=== PATIENT | female | born 1990 | race Asian ===

== ENCOUNTER 2016-11-09 11:07 | Outpatient (CLI) | payer MEDICAID | END 2016-11-09 11:08 | disposition home or self-care (01) | DX: N83.201 Unspecified ovarian cyst, right side (principal) ==

== ENCOUNTER 2017-09-04 19:38 | Emergency (ER) | payer MEDICAID ==
[2017-09-04 20:17] LABS: RAPID STREP SCREEN REAGENT QC YELLOW (YELLOW)
[2017-09-04] MEDS ORDERED: DEXAMETHASONE 10 MG/ML VIAL PO STA (20:45)
[2017-09-04] MEDS ORDERED: KETOROLAC 60 MG/2 ML VIAL IM STA (20:45)
[2017-09-04] MEDS ORDERED: AMOXICILLIN 250 MG CAPSULE PO STA (20:45)
--- NOTE | 2017-09-04 20:49 | ED Physician Documentation ---
PD HPI HEENT - Stated complaint Stated Complaint: SORE THROAT - Chief complaint Chief Complaint: Heent - History obtained from History obtained from: Patient - History of Present Illness Timing - onset: Today Timing - details: Gradual onset, Still present Location: Right ear, Left ear, Throat Worsens: Swalllowing Associated symptoms: No: Fever Similar symptoms before: Has not had sx before Recently seen: Not recently seen - Additional information Additional information: Patient is a 27 year old female with no significant past medical history who is presenting to the emergency department for throat and ear pain. patient states that it started today and has become progressively worse throughout the day. Patient states that patient's son has a cough at home. Review of Systems Constitutional: reports: Fever. denies: Chills, Myalgias Eyes: reports: Discharge, Irritation Ears: reports: Ear pain Nose: reports: Congestion, Sinus pressure / pain Throat: reports: Sore throat. denies: Swollen tonsils Cardiac: reports: Reviewed and negative Respiratory: denies: Cough GI: denies: Nausea, Vomiting PD PAST MEDICAL HISTORY - Past Medical History Past Medical History: No Cardiovascular: None Respiratory: None Neuro: None Endocrine/Autoimmune: None GI: None HOIST OPERATOR: None : None HEENT: None Psych: Other Musculoskeletal: None Derm: None - Past Surgical History Past Surgical History: Yes General: Cholecystectomy /HOIST OPERATOR: section HEENT: Tonsil/Adenoidectomy - Present Medications Home Medications: Ambulatory Orders Medication Instructions Recorded Confirmed Amoxicillin 1,000 mg PO Q8HR 7 Days capsule 09/04/17 - Allergies Allergies/Adverse Reactions: Allergies Allergy/AdvReac Type Severity Reaction Status Date / Time No Known Drug Allergies Allergy Verified 09/04/17 19:50 - Social History Does the pt smoke?: No Smoking Status: Never smoker Does the pt drink ETOH?: Yes Does the pt have substance abuse?: No - Immunizations Immunizations are current?: Yes - POLST Patient has POLST: No PD ED PE NORMAL - Vitals Vital signs reviewed: Yes - General General: Alert and oriented X 3, Well developed/nourished - HEENT HEENT: Atraumatic, PERRL - Neck Neck: Supple, no meningeal sign, No adenopathy, No JVD - Cardiac Cardiac: RRR, No murmur, No rub - Respiratory Respiratory: No respiratory distress, Clear bilaterally - Abdomen Abdomen: Soft, Non tender, Non distended - Derm Derm: Normal color, Warm and dry, No rash - Extremities Extremities: No deformity, No edema - Neuro Neuro: Alert and oriented X 3, No motor deficit, No sensory deficit, Normal speech - Psych Psych: Normal mood PD ED PE EXPANDED - HEENT HEENT: R TM retracted, R TM loss of landmarks, L TM retracted, L TM loss of landmarks, Nasal congestion, Dry mucous membranes, Pharyngeal erythema. No: Tonsillar exudate, Soft palate petecchiae Results - Vitals Vitals: Vital Signs - 24 hr 09/04/17 09/04/17 19:47 21:13 Temperature 36.6 C 37.3 C Heart Rate 92 66 Respiratory 18 18 Rate Blood Pressure 126/81 H 113/77 O2 Saturation 99 98 Oxygen O2 Source Room air - Labs Labs: Laboratory Tests 09/04/17 20:01 Group A Strep Rapid Negative PD MEDICAL DECISION MAKING - ED course Complexity details: reviewed old records, reviewed results, re-evaluated patient , considered differential, d/w patient ED course: Patient was seen and examined at bedside. Rapid strep was performed and negative. Patient's findings were consistent with otitis media. patient was treated with toradol, decadron and amoxicillin. Patient required no further work up at this time and was stable for discharge with outpatient follow up. Departure - Departure Disposition: 01 Home, Self Care Clinical Impression: Otitis media Condition: Good Instructions: ED Otitis Media Acute Adult Follow-Up: primary,care provider [Other] - Within 3 Days Prescriptions: Amoxicillin 1,000 mg PO Q8HR 7 Days capsule Comments: Your symptoms today are being caused by otitis media or an ear infection. You had your first dose of antibiotics tonight and will need to be on them for the next week. You should make sure you get plenty of rest and drink plenty of fluids. You can take motrin or tylenol as needed for fevers or pains. You should follow up with your doctor if your symptoms don't improve in the next couple of days. You may return to the emergency department at any time for new , worsening or uncontrollable symptoms. Discharge Date/Time: 09/04/17 21:13
[2017-09-04] MEDS ORDERED: AMOXICILLIN 250 MG CAPSULE PO ONE (20:56)
[2017-09-04] MEDS ORDERED: KETOROLAC 60 MG/2 ML VIAL ONE (20:56)
[2017-09-04] MEDS ORDERED: DEXAMETHASONE 10 MG/ML VIAL ONE (20:56)
[2017-09-04 21:14] VITALS: BP 113/77
== END 2017-09-04 21:13 | disposition home or self-care (01) ==
LOC: ED 19:38
DX: H66.93 Otitis media, unspecified, bilateral (principal)
CPT/HCPCS: 87070; 87430; 96372; 99283; A9270

== ENCOUNTER 2017-11-07 15:19 | Outpatient (CLI) | payer SELFPAY | END 2017-11-07 15:20 | disposition home or self-care (01) | LOC: LAB.R 15:19 | PROVIDERS: ATTEND Registered Nurse | DX: N76.0 Acute vaginitis (principal) | CPT/HCPCS: 87491; 87591 ==

== ENCOUNTER 2018-02-14 12:57 | Outpatient (CLI) | payer OTHER ==
--- NOTE | 2018-02-14 16:14 | Ultrasound Report ---
EXAM: PELVIC ULTRASOUND EXAM DATE: 02/14/2018 01:58 PM. CLINICAL HISTORY: RIGHT LOWER QUADRANT ABDOMINAL TENDERNESS. LMP 01/20/2018. COMPARISON: Pelvic ultrasound 11/09/2016. TECHNIQUE: Realtime transabdominal pelvic scan performed to identify the uterus and adnexa and as an overview of other pelvic structures, followed by transvaginal scan to provide greater detail of the u terus and adnexa, with static image documentation. FINDINGS: Uterus: 8.2 x 3.4 x 4.4 cm, volume 64 cc. Anteverted position. Normal overall size and echotexture. Masses: None. Endometrium: 2.9 mm. Normal. Cervix: Unremarkable. Right Ovary: 2.9 x 1.0 x 1.4 cm, volume 2.1 cc. Normal echotexture and blood flow. Left Ovary: 2.3 x 1.0 x 1.4 cm, volume 1.6 cc. Normal echotexture and blood flow. Located high, seen only transabdominally. Free Fluid: None. Other: None. IMPRESSION: Normal pelvic ultrasound. [facility] Referring Provider Line: [phone] SITE ID: [id number]
== END 2018-02-14 12:58 | disposition home or self-care (01) ==
LOC: DI 12:57
PROVIDERS: ATTEND Nurse Practitioner
DX: R10.813 Right lower quadrant abdominal tenderness (principal)
CPT/HCPCS: 76830; 76856

== ENCOUNTER 2018-09-21 10:14 | Emergency (ER) | payer OTHER ==
[2018-09-21 11:01] LABS: BASOPHILS % (AUTO) 0.3 %; EOSINOPHILS # (AUTO) 0.1 10^3/uL (0.0-0.7); EOSINOPHILS % (AUTO) 1.1 %; HGB - HEMOGLOBIN 13.3 g/dL (12.0-16.0); LYMPHOCYTES # (AUTO) 1.7 10^3/uL (1.5-3.5); LYMPHOCYTES % (AUTO) 16.4 %; MEAN CORPUSCULAR HEMOGLOBIN 32.7 pg (27.0-31.0); MEAN CORPUSCULAR HGB CONC 36.3 g/dL (32.0-36.0); MEAN CORPUSCULAR VOLUME 90.1 fL (81.0-99.0); MONOCYTES # (AUTO) 0.7 10^3/uL (0.0-1.0); NEUTROPHILS % (AUTO) 75.2 %; PLT - PLATELET COUNT 252 10^3/uL (130-450); RED BLOOD COUNT 4.06 10^6/uL (4.20-5.40); RED CELL DISTRIBUTION WIDTH 14.1 % (12.0-15.0); WHITE BLOOD COUNT 10.6 x10^3/uL (4.8-10.8)
[2018-09-21 11:15] LABS: ALBUMIN 3.9 g/dL (3.2-5.5); ALBUMIN/GLOBULIN RATIO 1.3 (1.0-2.2); CALCIUM 8.3 mg/dL (8.5-10.3); CREATININE 0.7 mg/dL (0.4-1.0)
--- NOTE | 2018-09-21 12:07 | ED Physician Documentation ---
PD HPI ABD PAIN - Stated complaint Stated Complaint: LOW RT ABD PX - Chief complaint Chief Complaint: Abd Pain - History obtained from History obtained from: Patient - History of Present Illness Timing - onset: Yesterday Timing - duration: Days (10/07) Timing - details: Gradual onset, Waxing and waning Quality: Cramping, Aching, Pain Location: Periumbilical, RLQ Radiation: Right flank Improved by: No: Eating, Laying still Worsened by: Moving. No: Eating Associated symptoms: Nausea, Loss of appetite. No: Fever, Vomiting, Diarrhea, Constipation, Melena, Hematochezia, Dysuria, Vaginal dc Similar symptoms before: Has not had sx before Recently seen: Not recently seen Review of Systems Constitutional: denies: Fever, Chills, Myalgias Nose: denies: Rhinorrhea / runny nose, Congestion Throat: denies: Sore throat Respiratory: denies: Cough GI: reports: Abdominal Pain, Nausea. denies: Abdominal Swelling, Vomiting, Constipation, Diarrhea : denies: Dysuria, Frequency, Discharge Skin: denies: Rash, Lesions PD PAST MEDICAL HISTORY - Past Medical History Cardiovascular: None Respiratory: None Endocrine/Autoimmune: None GI: None PRIMARY THERAPIST: None : None HEENT: None Psych: Other Musculoskeletal: None Derm: None - Past Surgical History Past Surgical History: Yes General: Cholecystectomy /PRIMARY THERAPIST: section HEENT: Tonsil/Adenoidectomy - Present Medications Home Medications: Ambulatory Orders Medication Instructions Recorded Confirmed Hydrocodone/Acetaminophen [[place] 1 each PO Q6H PRN #12 tablet 09/21/18 5-325 Tablet] Naproxen 375 mg PO BID #20 tablet 09/21/18 Ondansetron Odt [Zofran] 4 mg TL Q6H PRN #10 tablet 09/21/18 Venlafaxine [Effexor] 37.5 mg PO BID 09/21/18 09/21/18 - Allergies Allergies/Adverse Reactions: Allergies Allergy/AdvReac Type Severity Reaction Status Date / Time No Known Drug Allergies Allergy Verified 09/04/17 19:50 - Social History Does the pt smoke?: No Smoking Status: Never smoker Does the pt drink ETOH?: Yes Does the pt have substance abuse?: No - Immunizations Immunizations are current?: Yes - POLST Patient has POLST: No PD ED PE NORMAL - Vitals Vital signs reviewed: Yes - General General: Alert and oriented X 3, No acute distress, Well developed/nourished - HEENT HEENT: Moist mucous membranes, Pharynx benign - Neck Neck: Supple, no meningeal sign, No adenopathy - Cardiac Cardiac: RRR, No murmur - Respiratory Respiratory: Clear bilaterally - Abdomen Abdomen: Normal bowel sounds, Soft, Non distended, No organomegaly, Other (tender RLQ and periumbilical with local guarding. No percussion tenderness. ) - Female Female : Deferred - Rectal Rectal: Deferred - Back Back: No CVA TTP - Derm Derm: Normal color, Warm and dry - Neuro Neuro: Alert and oriented X 3, No motor deficit, Normal speech Results - Vitals Vitals: Vital Signs - 24 hr 09/21/18 09/21/18 09/21/18 10:30 14:10 15:21 Temperature 36.6 C Heart Rate 85 65 74 Respiratory 12 16 14 Rate Blood Pressure 125/75 115/75 116/86 H O2 Saturation 100 100 99 Oxygen O2 Source Room air - Labs Labs: Microbiology 09/21/18 11:00 Urine Culture - Final Urine,Clean Catch LESS THAN 10,000 COLONIES/ML polymicrobial growth including potential pathogens. This is suggestive of skin or other contamination. Laboratory Tests 09/21/18 09/21/18 09/21/18 10:57 10:57 11:00 WBC 10.6 RBC 4.06 L Hgb 13.3 Hct 36.6 L MCV 90.1 MCH 32.7 H MCHC 36.3 H RDW 14.1 Plt Count 252 MPV 8.0 Neut # (Auto) 8.0 H Lymph # (Auto) 1.7 King[place]isher # (Auto) 0.7 Eos # (Auto) 0.1 Baso # (Auto) 0.0 Absolute Nucleated RBC 0.00 Nucleated RBC % 0.0 Sodium 135 Potassium 3.6 Chloride 105 Carbon Dioxide 23 Anion Gap 7.0 BUN 14 Creatinine 0.7 Estimated GFR (MDRD) 98 Glucose 101 H Calcium 8.3 L Total Bilirubin 1.0 AST 36 ALT 36 Alkaline Phosphatase 61 Total Protein 7.0 Albumin 3.9 Globulin 3.1 Albumin/Globulin Ratio 1.3 Lipase 27 Urine Color YELLOW Urine Clarity HAZY Urine pH 6.0 Ur Specific Min[place] 1.020 Urine Protein NEGATIVE Urine Glucose (UA) NEGATIVE Urine Ketones NEGATIVE Urine Occult Blood NEGATIVE Urine Nitrite NEGATIVE Urine Bilirubin NEGATIVE Urine Urobilinogen 0.2 (NORMAL) Ur Leukocyte Esterase TRACE H Urine RBC 0-5 Urine WBC 0-3 Ur Squamous Epith Cells RARE Squamous Urine Bacteria Rare Ur Microscopic Review INDICATED Urine Culture Comments INDICATED Urine HCG, Qual 09/21/18 11:00 WBC RBC Hgb Hct MCV MCH MCHC RDW Plt Count MPV Neut # (Auto) Lymph # (Auto) King[place]isher # (Auto) Eos # (Auto) Baso # (Auto) Absolute Nucleated RBC Nucleated RBC % Sodium Potassium Chloride Carbon Dioxide Anion Gap BUN Creatinine Estimated GFR (MDRD) Glucose Calcium Total Bilirubin AST ALT Alkaline Phosphatase Total Protein Albumin Globulin Albumin/Globulin Ratio Lipase Urine Color Urine Clarity Urine pH Ur Specific Minetto 1.020 Urine Protein Urine Glucose (UA) Urine Ketones Urine Occult Blood Urine Nitrite Urine Bilirubin Urine Urobilinogen Ur Leukocyte Esterase Urine RBC Urine WBC Ur Squamous Epith Cells Urine Bacteria Ur Microscopic Review Urine Culture Comments Urine HCG, Qual NEGATIVE - Rads (name of study) abd/pelvic CT Radiology: Prelim report reviewed (some inflammation of colon. Appendix is normal. ), See rad report PD MEDICAL DECISION MAKING - ED course Complexity details: re-evaluated patient (improved with meds), considered differential (cocnern for TOA, ovarian cysts, appendicitis, UTI, stones), d/w patient Departure - Departure Disposition: 01 Home, Self Care Clinical Impression: Abdominal pain Qualifiers: Abdominal location: right lower quadrant Qualified Code(s): R10.31 - Right lower quadrant pain Condition: Stable Record reviewed to determine appropriate education?: Yes Instructions: ED Abdominal Pain Unkn Cause Follow-Up: Maru Tavera ARNP [Primary Care Provider] - Prescriptions: Hydrocodone/Acetaminophen [[place] 5-325 Tablet] 1 each PO Q6H PRN #12 tablet PRN Reason: Pain Naproxen 375 mg PO BID #20 tablet Ondansetron Odt [Zofran] 4 mg TL Q6H PRN #10 tablet PRN Reason: Nausea / Vomiting Comments: Your urine test, blood tests, CT scan did not show any obvious abnormality. There is obviously something still hurting but no problem such as appendicitis or kidney stone or urinary infection or cyst. At this point drink lots of fluids. Use some naproxen or ibuprofen 2-3 times a day. Add Tylenol or pain medicine if needed. Recheck if not improved over the next 1 or 2 days. He could be potentially having ovarian pain such as from midcycle or some residual intestinal pain from your diarrhea last week. This should improve with some anti-inflammatories. Discharge Date/Time: 09/21/18 15:23
[2018-09-21 12:18] LABS: BILIRUBIN,URINE NEGATIVE (NEGATIVE); GLUCOSE, URINE (UA) NEGATIVE (NEGATIVE); KETONES,URINE (UA) NEGATIVE (NEGATIVE); LEUKOCYTE ESTERASE, URINE TRACE (NEGATIVE); NITRITE,URINE NEGATIVE (NEGATIVE); OCCULT BLOOD,URINE NEGATIVE (NEGATIVE); PROTEIN,URINE NEGATIVE (NEGATIVE); UROBILINOGEN,URINE 0.2 (NORMAL) E.U./dL (NORMAL)
[2018-09-21 12:19] LABS: CLARITY,URINE HAZY (CLEAR)
[2018-09-21] MEDS ORDERED: KETOROLAC 60 MG/2 ML VIAL IVP STA (12:22)
[2018-09-21] MEDS ORDERED: ONDANSETRON 4 MG/2 ML VIAL IVP STA (12:22)
[2018-09-21 12:26] LABS: RBC,URINE 0-5 /HPF (0-5); SQUAMOUS EPITHELIAL CELL,UR RARE Squamous (<= Few)
[2018-09-21 12:27] LABS: BACTERIA,URINE Rare /HPF (None Seen)
[2018-09-21 12:32] LABS: HCG UR QUAL NEGATIVE
[2018-09-21] MEDS ORDERED: IOVERSOL 320 100 ML VIAL IVP ONE ×2 (12:47→13:14)
--- NOTE | 2018-09-21 14:38 | CT Report ---
Reason: RLQ pain since yesterday; Procedure Date: 09/21/2018 Accession Number: [id number] / [id number] Procedure: CT - Abdomen/Pelvis W/ CPT Code: FULL RESULT: EXAM: CT ABDOMEN AND PELVIS EXAM DATE: 09/21/2018 01:03 PM. CLINICAL HISTORY: RLQ abdominal pain since yesterday. COMPARISONS: PELVIC W/TRANSVAGINAL 02/14/2018 1:[address] of the abdomen and pelvis with contrast 06/14/2016. TECHNIQUE: Routine helical CT imaging was performed through the abdomen and pelvis. IV contrast: 90 cc Optiray 320. Enteric contrast: No. Reconstructions: Coronal and sagittal. In accordance with CT protocol optimization, one or more of the following dose reduction techniques were utilized for this exam: automated exposure control, adjustment of mA and/or KV based on patient size, or use of iterative reconstructive technique. FINDINGS: Lung Bases: Unremarkable. Liver: Normal. No masses. Gallbladder/Bile Ducts: The gallbladder is surgically absent. No intrahepatic or extrahepatic biliary dilatation. Spleen: Normal. Pancreas: Normal. Adrenal Glands: Normal. Kidneys: No mass or hydronephrosis. There is a 2 mm calyceal calculus at the inferior pole of the right kidney (series 3 image 30), unchanged compared to 06/14/2016. Peritoneal Cavity/Bowel: Normal. No free air or adenopathy. No masses or acute inflammatory process. The appendix is well visualized and normal. Pelvic Organs: There is trace free fluid in the posterior cul-de-sac of the pelvis, likely physiologic. The bladder and visualized pelvic organs are within normal limits. Vasculature: No aneurysms or other significant abnormality. Bones: No acute osseous abnormality. There is mild broad-based left convex curvature of the lower thoracic and lumbar spine, similar to prior. Other: None. IMPRESSION: 1. No acute intra-abdominal abnormality identified. The appendix is within normal limits. 2. Status post cholecystectomy. 3. Nonobstructing calyceal stone at the inferior pole of the right kidney. No hydronephrosis. [facility]
[2018-09-21 15:24] VITALS: BP 116/86
== END 2018-09-21 15:23 | disposition home or self-care (01) ==
LOC: ED 10:14
DX: R10.31 Right lower quadrant pain (principal)
CPT/HCPCS: 36415; 74177; 80053; 81001; 81025; 83690; 85025; 87086; 96374; 96375; 99283; Q9967; 81003

== ENCOUNTER 2020-03-05 11:05 | Emergency (ER) | payer MEDICAID ==
--- NOTE | 2020-03-05 11:41 | ED Physician Documentation ---
PD HPI ABD PAIN - Stated complaint Stated Complaint: FEMALE /6 WKS OB - Chief complaint Chief Complaint: Abd Pain - History obtained from History obtained from: Patient (29-year-old G2, P1 with LMP of January 20 presents with light spotting this week and a small amount of bleeding today with some pelvic cramping.) Review of Systems Ten Systems: 10 systems reviewed and negative Constitutional: reports: Reviewed and negative Nose: reports: Reviewed and negative Throat: reports: Reviewed and negative PD PAST MEDICAL HISTORY - Past Medical History Cardiovascular: None Respiratory: None Endocrine/Autoimmune: None GI: None DIRECTOR OF EXHIBIT DEVELOPMENT: None : None HEENT: None Psych: Other Musculoskeletal: None Derm: None - Past Surgical History Past Surgical History: Yes General: Cholecystectomy /DIRECTOR OF EXHIBIT DEVELOPMENT: section HEENT: Tonsil/Adenoidectomy - Present Medications Home Medications: Ambulatory Orders Medication Instructions Recorded Confirmed No Known Home Medications 03/05/20 03/05/20 - Allergies Allergies/Adverse Reactions: Allergies Allergy/AdvReac Type Severity Reaction Status Date / Time No Known Drug Allergies Allergy Verified 03/05/20 11:10 - Social History Does the pt smoke?: No Smoking Status: Never smoker Does the pt drink ETOH?: Yes Does the pt have substance abuse?: No - Family History Family history: reports: Non contributory - Immunizations Immunizations are current?: Yes - POLST Patient has POLST: No PD ED PE NORMAL - Vitals Vital signs reviewed: Yes - General General: Alert and oriented X 3 (She appears anxious but otherwise in no distress), No acute distress - HEENT HEENT: PERRL, EOMI - Neck Neck: Supple, no meningeal sign, No bony TTP - Cardiac Cardiac: RRR, No murmur - Respiratory Respiratory: No respiratory distress, Clear bilaterally - Abdomen Abdomen: Soft, Non tender - Female Female : Other (She does have a suggestion of an intrauterine on bedside transabdominal ultrasound but unable to see enough detail to rule in an intrauterine .) - Back Back: No CVA TTP, No spinal TTP - Derm Derm: Normal color, Warm and dry - Extremities Extremities: Normal ROM s pain, No edema, No calf tenderness / cord - Neuro Neuro: Alert and oriented X 3, Normal speech Results - Vitals Vitals: Vital Signs - 24 hr 03/05/20 03/05/20 11:06 13:10 Temperature 36.8 C Heart Rate 85 64 Respiratory 18 18 Rate Blood Pressure 131/81 H 99/60 O2 Saturation 100 99 Oxygen O2 Source Room air - Labs Labs: Laboratory Tests 03/05/20 03/05/20 03/05/20 11:32 11:32 11:32 WBC 9.6 RBC 4.40 Hgb 14.0 Hct 38.2 MCV 86.8 MCH 31.8 H MCHC 36.6 H RDW 13.2 Plt Count 266 MPV 10.2 Neut # (Auto) 5.8 Lymph # (Auto) 2.8 [place] # (Auto) 0.8 Eos # (Auto) 0.1 Baso # (Auto) 0.0 Absolute Nucleated RBC 0.00 Nucleated RBC % 0.0 Sodium 135 Potassium 3.7 Chloride 104 Carbon Dioxide 24 Anion Gap 7.0 BUN 16 Creatinine 0.7 Estimated GFR (MDRD) 98 Glucose 103 H Calcium 8.8 Total Bilirubin 0.8 AST 21 ALT 22 Alkaline Phosphatase 51 Total Protein 7.9 Albumin 4.1 Globulin 3.8 Albumin/Globulin Ratio 1.1 Lipase 43 HCG, Quant Blood Type O POSITIVE 03/05/20 11:32 WBC RBC Hgb Hct MCV MCH MCHC RDW Plt Count MPV Neut # (Auto) Lymph # (Auto) [place] # (Auto) Eos # (Auto) Baso # (Auto) Absolute Nucleated RBC Nucleated RBC % Sodium Potassium Chloride Carbon Dioxide Anion Gap BUN Creatinine Estimated GFR (MDRD) Glucose Calcium Total Bilirubin AST ALT Alkaline Phosphatase Total Protein Albumin Globulin Albumin/Globulin Ratio Lipase HCG, Quant 29236.00 Blood Type PD MEDICAL DECISION MAKING - ED course ED course: 29-year-old woman with threatened . Reassuring IUP on ultrasound but needs a repeat in a week and she was so counseled and I wrote an email to her BARREL PLATER to arrange. Departure - Departure Disposition: 01 Home, Self Care Clinical Impression: Threatened Condition: Good Record reviewed to determine appropriate education?: Yes Instructions: ED Miscarriage Poss Follow-Up: Nya Lindsay MD [Provider Admit Priv/Credential] - Comments: Call Dr. Lindsay's office on Friday to clarify when the next ultrasound should be. Return for new or worsening symptoms. Discharge Date/Time: 03/05/20 14:38
[2020-03-05 11:43] LABS: BASOPHILS % (AUTO) 0.3 %; EOSINOPHILS # (AUTO) 0.1 10^3/uL (0.0-0.7); EOSINOPHILS % (AUTO) 0.7 %; LYMPHOCYTES # (AUTO) 2.8 10^3/uL (1.5-3.5); LYMPHOCYTES % (AUTO) 29.6 %; MEAN CORPUSCULAR HEMOGLOBIN 31.8 pg (27.0-31.0); MEAN CORPUSCULAR HGB CONC 36.6 g/dL (32.0-36.0); MEAN CORPUSCULAR VOLUME 86.8 fL (81.0-99.0); MEAN PLATELET VOLUME 10.2 fL (7.9-10.8); MONOCYTES # (AUTO) 0.8 10^3/uL (0.0-1.0); NEUTROPHILS # (AUTO) 5.8 10^3/uL (1.5-6.6); NEUTROPHILS % (AUTO) 61.1 %; PLT - PLATELET COUNT 266 10^3/uL (130-450); RED CELL DISTRIBUTION WIDTH 13.2 % (12.0-15.0); WHITE BLOOD COUNT 9.6 x10^3/uL (4.8-10.8)
[2020-03-05 11:57] LABS: ALBUMIN 4.1 g/dL (3.2-5.5); ALBUMIN/GLOBULIN RATIO 1.1 (1.0-2.2); BILIRUBIN,TOTAL 0.8 mg/dL (0.2-1.0); CALCIUM 8.8 mg/dL (8.5-10.3); CREATININE 0.7 mg/dL (0.4-1.0); TOTAL PROTEIN 7.9 g/dL (6.7-8.2)
[2020-03-05 13:25] VITALS: BP 99/60
--- NOTE | 2020-03-05 14:16 | Ultrasound Report ---
Reason: VB/Preg Procedure Date: 03/05/2020 Accession Number: [id number] / [id number] Procedure: US - OB First Trimester CPT Code: Final Report FULL RESULT: EXAM: FIRST TRIMESTER OBSTETRIC ULTRASOUND (Less than 11 weeks) EXAM DATE: 03/05/2020 01:13 PM. CLINICAL HISTORY: Vaginal bleeding in . LMP: 01/21/2020. COMPARISONS: Pelvic ultrasound from 02/14/2018. TECHNIQUE: Transabdominal and transvaginal ultrasound examination with static image documentation. CLINICAL DATES: EGA 6 weeks 2 days with MARICARMEN 10/27/2020 based on LMP. ASSESSMENT: Gestational Sac: Single intrauterine. Mean gestational sac diameter: 15.5 mm = 6 weeks 3 days. Embryo: CRL (crown-rump length) 4.8 mm = 6 weeks 1 day. Cardiac activity: Probable cardiac activity on cine clips; however, this was not detectable with M-mode imaging. Yolk sac: 2 mm. Amniotic fluid: Not accurately assessed at this gestational age. Early placenta: Not visible at this gestational age. Other: There is a crescentic, heterogeneous collection along the left side of the gestational sac, measuring approximately 3.3 x 0.6 x 1.2 cm. This is suggestive of subacute perigestational hemorrhage. MATERNAL STRUCTURES: Uterus: Anteverted. Unremarkable. Cervix: Closed. Right Ovary/Adnexa: The ovary measures 2.6 x 2.1 x 2.5 cm, volume 7.2 cc. There is a corpus luteum measuring 2.1 x 1.9 x 1.9 cm. Left Ovary/Adnexa: The ovary measures 2.4 x 1.1 x 1.1 cm, volume 1.6 cc. Unremarkable. Free Fluid: Trace simple free fluid present in the cul-de-sac. Other: None. IMPRESSION: 1. Single intrauterine with probable cardiac activity demonstrated on cine images but not detected by M-mode imaging. Therefore, unable to determine if heart rate is appropriate for gestational age. Viability of is uncertain. 2. Gestational age by crown-rump length is 6 weeks 1 day, which is concordant with menstrual age. If is viable, assigned EDC would be 10/27/2020. 3. Subacute perigestational hemorrhage. Recommend follow-up with serial beta hCG and consideration for repeat ultrasound in 7-10 days. Follow-up imaging can be performed at an earlier interval if there is worsening vaginal bleeding. [facility]
== END 2020-03-05 14:38 | disposition home or self-care (01) ==
LOC: ED 11:05
DX: O20.0 Threatened abortion (principal); Z3A.01 Less than 8 weeks gestation of pregnancy
CPT/HCPCS: 36415; 76801; 76817; 80053; 83690; 84702; 85025; 86900; 86901; 99284

== ENCOUNTER 2020-03-08 08:00 | Outpatient (CLI) | payer OTHER, MEDICAID | END 2020-03-08 23:59 | disposition home or self-care (01) | LOC: LAB.WCP 08:00 | PROVIDERS: ATTEND Advanced Practice Midwife | DX: N93.8 Other specified abnormal uterine and vaginal bleeding (principal) | CPT/HCPCS: 36415; 84702 ==

== ENCOUNTER 2020-03-08 19:04 | Outpatient (CLI) | payer MEDICAID ==
--- NOTE | 2020-03-09 11:33 | Ultrasound Report ---
Reason: UTERINE AND VAG BLEEDING Procedure Date: 03/08/2020 Accession Number: [id number] / [id number] Procedure: US - OB Transvaginal CPT Code: Final Report FULL RESULT: PROCEDURE: OB Transvaginal INDICATIONS: UTERINE AND VAG BLEEDING OUTSIDE/PRIOR DATING DATA: Last menstrual period (LMP): 01/21/20. LMP-based estimated date of delivery (MARICARMEN): 10/27/20. First dating scan (date and location): 03/05/20. Estimated date of delivery (MARICARMEN) from first dating scan: 10/27/20. TECHNIQUE: Real-time scanning was performed of the fetus and maternal pelvic organs, with image documentation. Endovaginal scanning was also performed to better visualize the fetus and maternal ovaries. COMPARISON: 03/05/20. FINDINGS: Embryo: There is a single intrauterine with a gestational sac, yolk sac, and pole visualized. The crown-rump length measures 0.6 cm corresponding to a gestational age of 6 weeks 3 days corresponding to an estimated delivery date of 10/29/2020. There is heart motion with a rate of 124 bpm. There are 2 small perigestational subchorionic hematomas . The largest component measures approximately 1.9 x 1.7 cm and the smaller component measures approximately 1.2 x 0.5 cm. These appear increased compared to the prior study. Measurement variability in dating: +/- 4 weeks by LMP, +/- 7 days by mean sac diameter (use before 6 weeks gestation if crown-rump length not able to be measured), +/- 5 days by crown-rump or length (6-12 weeks gestation). Maternal organs: Right ovary measures are 3.8 x 2.0 x 2.7 cm and left ovary measures 2.1 x 1.1 x 1.6 cm. There is a thick-walled cyst redemonstrated in the right ovary measuring up to 2.1 cm compatible with a corpus luteal cyst. IMPRESSION: 1. Single living intrauterine redemonstrated with calculated gestational age of 6 weeks 3 days. 2. Increase in size of a perigestational subchorionic hematoma. Recommend clinical followup and a short term repeat study if clinically indicated. 3. Probable corpus luteal cyst in the right ovary. Reviewed by: Carlos Pettit MD on 03/09/2020 11:32 AM PDT Approved by: Carlos Pettit MD on 03/09/2020 11:32 AM PDT Station ID: [id number]
== END 2020-03-08 19:05 | disposition home or self-care (01) ==
LOC: DI 19:04
PROVIDERS: ATTEND Advanced Practice Midwife
DX: O20.0 Threatened abortion (principal); N83.11 Corpus luteum cyst of right ovary; Z3A.01 Less than 8 weeks gestation of pregnancy
CPT/HCPCS: 36415; 76817; 84702

== ENCOUNTER 2020-03-15 07:34 | Outpatient (CLI) | payer MEDICAID, OTHER ==
--- NOTE | 2020-03-15 09:35 | Ultrasound Report ---
Reason: POSITIVE TEST Procedure Date: 03/15/2020 Accession Number: [id number] / [id number] Procedure: US - OB First Trimester CPT Code: Final Report FULL RESULT: PROCEDURE: OB First Trimester INDICATIONS: POSITIVE TEST OUTSIDE/PRIOR DATING DATA: Last menstrual period (LMP): 01/21/2020. LMP-based estimated date of delivery (MARICARMEN): 10/27/2020. First dating scan (date and location): 03/05/2020. Estimated date of delivery (MARICARMEN) from first dating scan: 10/27/2020. TECHNIQUE: Real-time scanning was performed of the fetus and maternal pelvic organs, with image documentation. COMPARISON: Ultrasound dated 03/05/2020 and 03/08/2020 FINDINGS: Embryo: Single living intrauterine fetus is present with a crown-rump length measuring 1.37 cm, 7 weeks 5 days. heart rate measures 153 bpm. There are a pair of subchorionic hemorrhages measuring 1.5 x 1.0 x 2.6 cm and 1.5 x 0.8 x 1.8 cm. Measurement variability in dating: +/- 4 weeks by LMP, +/- 7 days by mean sac diameter (use before 6 weeks gestation if crown-rump length not able to be measured), +/- 5 days by crown-rump length (6-12 weeks gestation). Maternal organs: Ovaries unremarkable except for a presumed right-sided corpus luteum. Limited images through the kidneys demonstrate no hydronephrosis. IMPRESSION: Single living intrauterine fetus with a gestational age measuring 7 weeks and 5 days by today's ultrasound measurements Perigestational hemorrhage redemonstrated Reviewed by: Dariel Quiroga MD on 03/15/2020 9:33 AM PDT Approved by: Dariel Quiroga MD on 03/15/2020 9:33 AM PDT Station ID: [id number]
--- NOTE | 2020-03-15 15:34 | Ultrasound Report ---
Reason: POSITIVE TEST Procedure Date: 03/15/2020 Accession Number: [id number] / [id number] Procedure: US - OB Transvaginal CPT Code: Final Report FULL RESULT: PROCEDURE: OB Transvaginal INDICATIONS: POSITIVE TEST OUTSIDE/PRIOR DATING DATA: Last menstrual period (LMP): 01/21/20. LMP-based estimated date of delivery (MARCIARMEN): 10/27/20. First dating scan (date and location): 03/05/20. Estimated date of delivery (MARICARMEN) from first dating scan: 10/27/20. TECHNIQUE: Real-time scanning was performed of the fetus and maternal pelvic organs, with image documentation. Endovaginal scanning was also performed to better visualize the fetus and maternal ovaries. COMPARISON: 03/08/20, 03/05/20. FINDINGS: Embryo: There is a single intrauterine with a gestational sac, yolk sac, and pole redemonstrated. The crown-rump length measures approximately 1.4 cm corresponding to a gestational age of 7 weeks 5 days. heart motion is identified with a rate of 1 53 bpm. 2 small subchorionic hematomas are demonstrated, measuring 1.5 x 1.0 x 2.6 cm and 1.5 x 0.8 x 1.8 cm. These appear similar in size compared to the prior study given differences in technique. Measurement variability in dating: +/- 4 weeks by LMP, +/- 7 days by mean sac diameter (use before 6 weeks gestation if crown-rump length not able to be measured), +/- 5 days by crown-rump length (6-12 weeks gestation). Maternal organs: The right ovary measures 2.7 x 2.4 x 1.8 cm. There is a thick-walled cyst in the right ovary redemonstrated measuring up to 2.0 cm with peripheral vascularity on Doppler interrogation compatible with a corpus luteal cyst. The left ovary measures 1.5 x 3.5 x 1.4 cm. IMPRESSION: 1. Single living intrauterine redemonstrated with calculated gestational age of 7 weeks 5 days. 2. Small subchorionic hematomas appear similar in size to the prior study given differences in technique. 3. Probable corpus luteal cyst in the right ovary. Reviewed by: Carlos Pettit MD on 03/15/2020 3:32 PM PDT Approved by: Carlos Pettit MD on 03/15/2020 3:32 PM PDT Station ID: [id number]
== END 2020-03-15 07:35 | disposition home or self-care (01) ==
LOC: DI 07:34
PROVIDERS: ATTEND Obstetrics & Gynecology
DX: O20.9 Hemorrhage in early pregnancy, unspecified (principal); Z3A.01 Less than 8 weeks gestation of pregnancy
CPT/HCPCS: 76801; 76817

== ENCOUNTER 2020-03-15 08:00 | Outpatient (CLI) | payer OTHER, MEDICAID ==
[2020-03-16 09:41] LABS: MUDS CUTOFF CONCENTRATIONS CUTOFF CONC BELOW:
[2020-03-16 09:47] LABS: BILIRUBIN,URINE NEGATIVE (NEGATIVE); GLUCOSE, URINE (UA) NEGATIVE (NEGATIVE); KETONES,URINE (UA) NEGATIVE (NEGATIVE); LEUKOCYTE ESTERASE, URINE NEGATIVE (NEGATIVE); NITRITE,URINE NEGATIVE (NEGATIVE); OCCULT BLOOD,URINE NEGATIVE (NEGATIVE); PH,URINE 5.5 PH (5.0-7.5); PROTEIN,URINE NEGATIVE (NEGATIVE); UROBILINOGEN,URINE 0.2 (NORMAL) E.U./dL (NORMAL)
[2020-03-16 09:49] LABS: CLARITY,URINE CLEAR (CLEAR)
[2020-03-16 09:59] LABS: AMPHETAMINE SCREEN,URINE NEGATIVE (NEGATIVE); BENZODIAZEPINES SCREEN, URINE NEGATIVE (NEGATIVE); COCAINE SCREEN URINE NEGATIVE (NEGATIVE); METHADONE SCREEN, URINE NEGATIVE (NEGATIVE); METHAMPHETAMINES SCREEN, URINE NEGATIVE (NEGATIVE); OPIATE SCREEN, URINE NEGATIVE (NEGATIVE); OXYCODONE SCREEN, URINE NEGATIVE (NEGATIVE); PROPOXYPHENE SCREEN, URINE NEGATIVE (NEGATIVE); TRICYCLIC ANTIDEPRESSANT,URINE NEGATIVE (NEGATIVE)
[2020-03-16 20:34] LABS: TRICHOMONAS VAGINALIS DNA NEGATIVE (NEGATIVE)
== END 2020-03-15 23:59 | disposition home or self-care (01) ==
LOC: LAB.R 08:00
PROVIDERS: ATTEND Advanced Practice Midwife
DX: Z36.89 Encounter for other specified antenatal screening (principal)
CPT/HCPCS: 80306; 81001; 81003; 87086; 87491; 87591; 87661

== ENCOUNTER 2020-03-24 14:10 | Outpatient (CLI) | payer MEDICAID, OTHER ==
[2020-03-24 15:34] LABS: BASOPHILS % (AUTO) 0.4 %; EOSINOPHILS # (AUTO) 0.1 10^3/uL (0.0-0.7); EOSINOPHILS % (AUTO) 1.2 %; HGB - HEMOGLOBIN 11.8 g/dL (12.0-16.0); LYMPHOCYTES # (AUTO) 2.5 10^3/uL (1.5-3.5); LYMPHOCYTES % (AUTO) 23.9 %; MEAN CORPUSCULAR HEMOGLOBIN 31.4 pg (27.0-31.0); MEAN CORPUSCULAR HGB CONC 36.2 g/dL (32.0-36.0); MEAN CORPUSCULAR VOLUME 86.7 fL (81.0-99.0); MEAN PLATELET VOLUME 10.5 fL (7.9-10.8); MONOCYTES # (AUTO) 0.6 10^3/uL (0.0-1.0); MONOCYTES % (AUTO) 6.2 %; NEUTROPHILS % (AUTO) 67.9 %; PLT - PLATELET COUNT 258 10^3/uL (130-450); RED BLOOD COUNT 3.76 10^6/uL (4.20-5.40); RED CELL DISTRIBUTION WIDTH 13.3 % (12.0-15.0); WHITE BLOOD COUNT 10.4 x10^3/uL (4.8-10.8)
[2020-03-25 10:04] LABS: HIV AG/AB 4TH GEN NON-REACTIVE (NON-REACTIVE)
[2020-03-25 13:14] LABS: HEPATITIS B SURFACE ANTIGEN NON-REACTIVE (NON-REACTIVE)
[2020-03-27 17:05] LABS: HEPATITIS C ANTIBODY NON-REACTIVE (NON-REACTIVE)
== END 2020-03-24 14:11 | disposition home or self-care (01) ==
LOC: LAB 14:10
PROVIDERS: ATTEND Advanced Practice Midwife
DX: Z36.89 Encounter for other specified antenatal screening (principal)
CPT/HCPCS: 36415; 81599; 85025; 86592; 86762; 86803; 86850; 86900; 86901; 87340; 87389

== ENCOUNTER 2020-05-15 16:52 | Outpatient (CLI) | payer OTHER, MEDICAID | END 2020-05-15 16:53 | disposition home or self-care (01) | LOC: LAB 16:52 | PROVIDERS: ATTEND Obstetrics & Gynecology | DX: Z34.90 Encounter for supervision of normal pregnancy, unspecified, unspecified trimester (principal) | CPT/HCPCS: 81511; 81599 ==

== ENCOUNTER 2020-05-29 18:04 | Outpatient (CLI) | payer MEDICAID, OTHER ==
--- NOTE | 2020-06-01 16:41 | Ultrasound Report ---
PROCEDURE: OB Detailed Eval INDICATIONS: OUTSIDE/PRIOR DATING DATA: Last menstrual period (LMP): . LMP-based estimated date of delivery (MARICARMEN): 10/27/2020. First dating scan (date and location): 03/05/2020. Estimated date of delivery (MARICARMEN) from first dating scan: 10/28/2020. TECHNIQUE: Real-time scanning was performed of the fetus, with image documentation and biometric measurements. COMPARISON: OB ultrasound 03/05/2020, 03/08/2020 03/15/2020 FINDINGS: General: A single living intrauterine gestation is present. Presentation: Variable Placenta: Placental position is anterior fundal, without previa. Amniotic fluid index: 18.6 cm, within normal limits for gestational age. heart rate: 152 beats per minute. Maternal cervical canal: 4 cm long; normal length is 2.5 cm or more. biometrics: Biparietal diameter: 4.5 cm 19 weeks 5 days Head circumference: 16.47 m 19 weeks 1 day Abdominal circumference: 13.7 cm 19 weeks 1 day Femur length: 2.6 cm 17 weeks 6 days Estimated gestational age from initial scan: 18 weeks 1 day Composite gestational age from present scan: 18 weeks 5 days Estimated weight and percentile: 249 g 75th percentile Measurement variability in biometric dating: +/- 10 days from 12-20 weeks gestation, +/- 2 weeks from 20-30 weeks gestation, +/- 3 weeks at 30 weeks gestation or later. Anatomic survey: Neuro: Ventricles are normal at less than 10 mm. Cisterna magna is normal at 3-11 mm. Cerebellum i s normal in size and morphology. Nuchal skin fold: Normal at less than 6 mm between 14 and 20 weeks gestational age. Face: Nose and lips, facial profile are normal. Spine: No evidence for spina bifida. Heart: 4-chambered heart is present, with normal ventricular outflow tracts. Diaphragm: Diaphragm is intact. Stomach: Left-sided stomach is present. Kidneys: No hydronephrosis. Normal is less than 5 mm in 2nd trimester, less than 7 mm in 3rd trimester. Cord: 3 vessel cord has orthotopic insertion. Bladder: Normal in size. Extremities: All 4 extremities are visualized. IMPRESSION: 1. Single live intrauterine with ultrasound gestational age of 18 weeks 5 days compared to 18 weeks 1 day from initial ultrasound. Ultrasound MARICARMEN is noted to be 10/28/2020. This is reflective o f the ultrasound generated MARICARMEN from the 03/05/2020 exam, at which time the crown-rump length was first identified. 2. Anatomy is within normal limits. Reviewed by: Danika Zhang MD on 06/01/2020 4:40 PM PDT Approved by: Danika Zhang MD on 06/01/2020 4:40 PM PDT Station ID: [id number]
== END 2020-05-29 18:05 | disposition home or self-care (01) ==
LOC: DI 18:04
PROVIDERS: ATTEND Obstetrics & Gynecology
DX: Z36.89 Encounter for other specified antenatal screening (principal)
CPT/HCPCS: 76811